=== PATIENT | female | born 1990 | race Caucasian/White ===

== ENCOUNTER 2020-08-21 09:30 | Emergency (ER) | payer OTHER ==
[~2020-08-21 09:30] MED LIST: COLACE 100MG C100 MG PO; IBUPROFEN600 MG PO
== END 2020-08-21 10:29 | disposition home or self-care (01) ==
LOC: ER1 09:30
DX: O9A.212 Injury, poisoning and certain other consequences of external causes complicating pregnancy, second trimester (principal); M54.5 Low back pain; O99.332 Smoking (tobacco) complicating pregnancy, second trimester; F17.200 Nicotine dependence, unspecified, uncomplicated; W01.0XXA Fall on same level from slipping, tripping and stumbling without subsequent striking against object, initial encounter; Z3A.26 26 weeks gestation of pregnancy
CPT/HCPCS: 99284

== ENCOUNTER 2020-08-21 10:30 | Outpatient (CLI) | payer OTHER | END 2020-08-21 14:04 | disposition home or self-care (01) | LOC: GENOP 10:30 | DX: O9A.212 Injury, poisoning and certain other consequences of external causes complicating pregnancy, second trimester (principal); S39.92XA Unspecified injury of lower back, initial encounter; O99.332 Smoking (tobacco) complicating pregnancy, second trimester; F17.210 Nicotine dependence, cigarettes, uncomplicated; Z3A.26 26 weeks gestation of pregnancy; W19.XXXA Unspecified fall, initial encounter | CPT/HCPCS: 81001; 96372; J0696 ==

== ENCOUNTER 2020-10-01 18:42 | Emergency (ER) | payer OTHER ==
[2020-10-01 19:44] LABS: HEMOGLOBIN 12.6 gm/dl (12.3-15.3); WHITE BLOOD COUNT 6.8 K/UL (4.5-11.0)
[2020-10-01 19:45] LABS: RED BLOOD COUNT 3.8 M/UL (4.00-5.10)
[2020-10-01 20:09] LABS: BUN/CREATININE RATIO 7 (0-10)
== END 2020-10-01 21:40 | disposition home or self-care (01) ==
LOC: ER1 18:42
PROVIDERS: Physician Assistant
DX: O98.512 Other viral diseases complicating pregnancy, second trimester (principal); U07.1 COVID-19; Z3A.32 32 weeks gestation of pregnancy
CPT/HCPCS: 0240U; 80053; 81001; 85025; 85379; 87086; 93005; 99285

== ENCOUNTER 2020-11-12 16:49 | Inpatient (IN) | payer OTHER ==
[2020-11-12 18:35] LABS: HEMOGLOBIN 12.1 gm/dl (12.3-15.3); RED BLOOD COUNT 3.7 M/UL (4.00-5.10); WHITE BLOOD COUNT 12.2 K/UL (4.5-11.0)
[2020-11-13] MEDS ORDERED: IBUPROFEN600 MG PO (15:38)
[2020-11-13] MEDS ORDERED: DOCUSATE SODIU100 MG PO (15:38)
[2020-11-14 05:45] LABS: HEMOGLOBIN 11.3 gm/dl (12.3-15.3)
== END 2020-11-14 17:26 | disposition home or self-care (01) | DRG 807 ==
LOC: GENOP 16:49 → OB 17:05
PROVIDERS: Obstetrics & Gynecology; ADMIT Obstetrics & Gynecology
PROC: 10E0XZZ Delivery of Products of Conception, External Approach (ICD-10-PCS; principal; 2020-11-12)
PROC: 4A1HXCZ Monitoring of Products of Conception, Cardiac Rate, External Approach (ICD-10-PCS; 2020-11-12)
PROC: 3E033VJ Introduction of Other Hormone into Peripheral Vein, Percutaneous Approach (ICD-10-PCS; 2020-11-12)
PROC: 10907ZC Drainage of Amniotic Fluid, Therapeutic from Products of Conception, Via Natural or Artificial Opening (ICD-10-PCS; 2020-11-12)
PROC: 10H073Z Insertion of Monitoring Electrode into Products of Conception, Via Natural or Artificial Opening (ICD-10-PCS; 2020-11-12)
PROC: 4A1H7CZ Monitoring of Products of Conception, Cardiac Rate, Via Natural or Artificial Opening (ICD-10-PCS; 2020-11-12)
DX: O41.03X0 Oligohydramnios, third trimester, not applicable or unspecified (principal); Z37.0 Single live birth; Z3A.37 37 weeks gestation of pregnancy; O36.5930 Maternal care for other known or suspected poor fetal growth, third trimester, not applicable or unspecified; O99.334 Smoking (tobacco) complicating childbirth; F17.210 Nicotine dependence, cigarettes, uncomplicated; O99.214 Obesity complicating childbirth; E66.9 Obesity, unspecified; O69.81X0 Labor and delivery complicated by cord around neck, without compression, not applicable or unspecified
CPT/HCPCS: 51702; 81001; 85014; 85018; 85025; J2405; J2590; J7120